=== PATIENT | female | born 1995 | race Caucasian/White ===

== ENCOUNTER 2020-02-13 14:52 | Observation (INO) | payer OTHER ==
[~2020-02-13] VITALS: Ht 157.5 cm; Wt 90.7 kg
[2020-02-13] MEDS ORDERED: PNV1TABL76 PO (15:07)
[2020-02-13] MEDS ORDERED: LEVE500V IV (15:07)
[2020-02-13] MEDS ORDERED: LEVETIRACETAM 500MG TABLET PO NR (15:15)
== END 2020-02-13 17:35 | disposition home or self-care (01) ==
LOC: 8 EST LDRP 14:52
PROVIDERS: ADMIT Obstetrics & Gynecology; ATTEND Obstetrics & Gynecology
DX: O62.9 Abnormality of forces of labor, unspecified (principal); O26.893 Other specified pregnancy related conditions, third trimester; N89.8 Other specified noninflammatory disorders of vagina; Z3A.31 31 weeks gestation of pregnancy
CPT/HCPCS: 59025; 76805; 76818; G0378; 99281